=== PATIENT | female | born 2005 | race Caucasian/White ===

== ENCOUNTER 2025-01-02 12:49 | Emergency (ER) | payer OTHER, SELFPAY ==
[2025-01-02] VITALS (12 sets, daily range): BP systolic 95–138; BP diastolic 48–88; PULSE 67–102; RESP 15–19; TEMP 36.7; O2SAT 97–100
--- NOTE | 2025-01-02 13:40 | ECG_ITS ---
Test Date: 2025-01-02 15:46:23 Measurements Intervals [place] Rate: 64 P: 4 CA: 136 QRS: 74 QRSD: 86 T: 47 QT: 375 QTc: 387 Interpretive Statements SINUS RHYTHM MINIMAL Q WAVES- INFERIOR LEADS BASELINE ARTIFACT- I, II, III, AVR, AVL, V1 BORDERLINE ECG No previous ECG available for comparison Electronically Signed On 01-02-2025 16:07:44 CDT by Federico Tom D.O.
--- NOTE | 2025-01-02 14:06 | ED_ITS ---
HPI - General Adult General Chief complaint: Unspecified Stated complaint: episodes of near syncope (no LOC) Time Seen by Provider: 01/02/25 13:37 History of Present Illness HPI narrative: 19-year-old female presents emergency department for evaluation for intermittent headache and visual changes. Patient reports she does have history of POTS. Patient states over the last few weeks she has had intermittent episodes where she has some visual changes including difficulty with depth perception and then has a subsequent headache. Today patient reports that she had a headache and just felt ? ?. Patient does have history of POTS Related Data Allergies Allergy/AdvReac Type Severity Reaction Status Date / Time No Known Allergies Allergy Verified 01/02/25 15:26 Review of Systems 2 Review of Systems: All systems reviewed & are unremarkable except as noted in HPI and below Exam 2 Narrative: APPEARANCE: Well appearing, no pain, no distress, well-nourished. HEAD: normocephalic, atraumatic. EYES: PERRLA/EOMI, conjunctivae clear. NOSE: Normal no drainage EARS:TMS clear with good light reflex. THROAT: Pharynx clear, no exudate. NECK: Supple. No adenopathy, no masses. RESPIRATORY: Airway patent, respirations nonlabored. Clear to auscultation bilaterally, no rales, rhonchi, wheezing. CARDIOVASCULAR: Regular rate and rhythm without murmurs rubs or gallops. ABDOMINAL: Soft, nontender, nondistended, normal bowel sounds MUSCULOSKELETAL: Moves all extremities. Strength/ROM intact, No edema, No calf tenderness. NEURO: Alert. Cranial nerves II through XII intact. Grossly intact SKIN: Warm, dry. Normal Color Course Vital Signs Vital signs: Vital Signs Temperature 98.0 F 01/02/25 12:56 Pulse Rate 79 01/02/25 12:56 Respiratory Rate 15 01/02/25 12:56 Blood Pressure 138/59 L 01/02/25 12:56 Temperature 98.0 F 01/02/25 12:56 Pulse Rate 102 H 01/02/25 16:45 Respiratory Rate 16 01/02/25 16:45 Blood Pressure 119/75 01/02/25 16:45 Pulse Oximetry 98 01/02/25 16:45 Medical Decision Making [facility] Narrative Medical decision making narrative: 19-year-old female presents emergency department for evaluation for complaints of oral, migraine and lightheaded dizziness. Patient reports her symptoms are resolved with IV fluids, IV Compazine, IV Benadryl and IV Toradol. Patient is currently afebrile with no leukocytosis hemoglobin 14.1. Patient has no acute abnormalities on her CMP UA is negative for infection. Since test was negative. On re-evaluation patient states she does feel significantly improved. Differential Diagnosis Differential Diagnosis: Dehydration, migraine, pots, UTI Vital Signs Vital Signs: Vital Signs Temperature 98.0 F 01/02/25 12:56 Pulse Rate 79 01/02/25 12:56 Respiratory Rate 15 01/02/25 12:56 Blood Pressure 138/59 L 01/02/25 12:56 Temperature 98.0 F 01/02/25 12:56 Pulse Rate 102 H 01/02/25 16:45 Respiratory Rate 16 01/02/25 16:45 Blood Pressure 119/75 01/02/25 16:45 Pulse Oximetry 98 01/02/25 16:45 Lab Data Lab results reviewed: Yes I reviewed the patient's lab results. 01/02/25 15:07 01/02/25 15:07 Labs: Lab Results 01/02/25 01/02/25 Range/Units 14:30 15:07 WBC 5.8 (4.5-10.0) K/mm3 RBC 4.76 (4.2-5.4) M/mm3 Hgb 14.1 (12.0-15.0) g/dL Hct 42.7 (37.0-47.0) % MCV 89.7 (80-100) fl MCH 29.6 (26-34) pg MCHC 33.0 (32-36) g/dl RDW 11.7 (11.5-14.5) % Plt Count 229 (150-375) k/mm3 MPV 9.8 (7.4-10.4) fl Immature Gran % (Auto) 0.2 (0-0.5) % Neut % (Auto) 54.8 (45.5-73.1) % Lymph % (Auto) 34.8 (18.3-44.2) % Hutchinson % (Auto) 8.1 (2.6-8.5) % Eos % (Auto) 1.4 (0-4.4) % Baso % (Auto) 0.7 (0.2-1.2) % Lymph # (Auto) 2.01 (0.9-3.2) K/mm3 Hutchinson # (Auto) 0.5 (0.1-0.6) K/mm3 Eos # (Auto) 0.1 (0-0.3) K/mm3 Baso # (Auto) 0.0 (0.0-0.1) K/mm3 Abs Immat Gran (auto) 0.01 (0.00-0.031) K/mm3 Absolute Neuts (auto) 3.2 (1.3-6.7) K/mm3 Absolute Nucleated RBC 0.000 (0.0-0.012) K/mm3 Nucleated RBC % 0.0 (0.0-0.2) % Sodium 138 (137-145) mmol/L Potassium 4.1 (3.4-5.0) mmol/L Chloride 104 (98-107) mmol/L Carbon Dioxide 25 (22-30) mmol/L Anion Gap 9 (4-12) mmol/L BUN 13 (7-17) mg/dL Creatinine 0.72 (0.7-1.0) mg/dL Estim Creat Clear Calc Not Reportable Estimated GFR > 60 (59 - ) Glucose 82 (65-110) mg/dL Calcium 9.5 (8.4-10.2) mg/dL Magnesium 2.0 (1.6-2.3) mg/dL Total Bilirubin 0.4 (0.2-1.3) mg/dL AST 30 (14-36) U/L ALT 18 (6-35) U/L Alkaline Phosphatase 50 (38-126) U/L Total Protein 8.1 (6.3-8.2) g/dL Albumin 4.7 (3.5-5.1) g/dL TSH (Reflex) 0.848 (0.465-4.68) uIU/mL Urine Color Yellow (Yellow) Urine Appearance Clear (Clear) Urine pH 7.0 (5.0-9.0) Ur Specific [place] 1.014 (1.001-1.035) Urine Protein Negative (Negative) mg/dL Urine Glucose (UA) Negative (Negative) mg/dL Urine Ketones Negative (Negative) mg/dL Ur Blood (Man) Negative (Negative) Urine Nitrate Negative (Negative) Urine Bilirubin Negative (Negative) Urine Urobilinogen 0.2 (<2.0) mg/dL Add Ur Microanalysis Reviewed Leukocyte Esterase Rfl 1+ H (Negative) CINTHIA/UL Urine RBC 0-2 (0-2) /hpf Urine WBC 0-5 (0-3) /hpf Ur Squamous Epith Cells None seen (Few) /hpf Urine Bacteria None seen /hpf Urine Casts 0-2 POC Urine HCG, Qual Negative (Negative) ECG Data EKG #1: EKG Interpretation: normal rate, sinus rhythm, no ectopy, non-specific ST changes, normal QRS, normal QT and NL axis Discharge Plan Discharge Clinical Impression: Migraine Patient Disposition: Home Condition: Stable Instructions: Antibiotic Form, Migraine Headache (ED), Dizziness (ED) Additional Instructions: Have close follow-up with your primary care physician. Tylenol and ibuprofen as needed for headache. Drink plenty of fluids. Follow a balanced diet. If you have any worsening symptoms then please call or return to the emergency department Patient Language: Citizen Of [place] Follow-up/Referrals: PHYSICIAN NOT ON STAFF,NONSTAFF [Non-Staff]
[2025-01-02] MEDS: LACTATED RINGERS 1,000 ML 999 ML IV CONT (15:10)
[2025-01-02] MEDS: KETOROLAC 15 MG/ML VIAL (*BKC) IV PUSH (15:11)
[2025-01-02] MEDS: PROCHLORPERAZINE EDISYLATE 10 MG/2 ML VIAL IV PUSH (15:18)
[2025-01-02 15:23] LABS: Hematocrit 42.7 % (37.0-47.0); Hemoglobin 14.1 g/dL (12.0-15.0); Immature Granulocyte Percent A 0.2 % (0-0.5); Lymphocytes Absolute Auto 2.01 K/mm3 (0.9-3.2); Mean Corpuscular HGB Conc 33.0 g/dl (32-36); Mean Corpuscular Hemoglobin 29.6 pg (26-34); Mean Corpuscular Volume 89.7 fl (80-100); Nucleated Red Blood Cells Absolute Auto 0.000 K/mm3 (0.0-0.012); Nucleated Red Blood Cells Perc 0.0 % (0.0-0.2); Platelet Count Result 229 k/mm3 (150-375); Red Blood Count 4.76 M/mm3 (4.2-5.4); White Blood Count 5.8 K/mm3 (4.5-10.0)
[2025-01-02 15:39] LABS: Alanine Aminotransferase 18 U/L (6-35); Albumin Level 4.7 g/dL (3.5-5.1); Alkaline Phosphatase 50 U/L (38-126); Anion Gap 9 mmol/L (4-12); Aspartate Amino Transferase 30 U/L (14-36); Bilirubin,Total 0.4 mg/dL (0.2-1.3); Blood Urea Nitrogen 13 mg/dL (7-17); Calcium 9.5 mg/dL (8.4-10.2); Carbon Dioxide 25 mmol/L (22-30); Chloride 104 mmol/L (98-107); Estimated Glomerular Filt Rate > 60; Glucose 82 mg/dL (65-110); Magnesium 2.0 mg/dL (1.6-2.3); Potassium 4.1 mmol/L (3.4-5.0); Sodium 138 mmol/L (137-145); Total Protein 8.1 g/dL (6.3-8.2)
[2025-01-02 15:47] LABS: BEDSIDEPREGUCG Negative (Negative)
[2025-01-02 15:59] LABS: Add Urine Microscopic? YES; Appearance Urine Clear (Clear); Glucose Urine UA Negative (Negative); Leukocyte Esterase Ur 1+ LEU/UL (Negative); Need Manual Microscopic Reviewed; Nitrate Urine Negative (Negative); Non Pathogenic Casts 0-2; Specific Grav Ur 1.014 (1.001-1.035)
--- OUTSIDE RECORDS SUMMARY | 2025-01-02 16:12 | XMS_ITS | Encounter Summary ---
Author Organization [facility] Address [address] [place] [address] Care Team Providers Care Analytic Manager Name Role Phone KatyDarin Primary Care Provider Li Kendrick DO Unavailable [phone] Encounter Details Date Type Department Care Team (Late st Contact Info) Description 11/01/2024 Results Follow-Up [facility] [place] - Endoscopy Surgery [address] [place], [place] [id number] Li Kendrick DO [address] [address] Social History Tobacco Use Types Packs/Day Years Used Date Smoking Tobacco: Never Smokeless Tobacco: Never Alcohol Use Standard Drinks/Week Comments Never 0 (1 standard drink = 0.6 oz pur e alcohol) AUDIT-C Answer Date Recorded Frequency of Alcohol Consumption Not on file 09/02/2023 Q2: How many drinks containi ng alcohol do you have on a typical day when you are drinking? Patient does not drink Frequency of Binge Drinking Not on file 08/05 PHQ-2 Answer Date Recorded Patient Health Questionnaire-2 Score 1 10/12/2024 Comments No Sex and Gender Information Value Date Recorded Sex Assigned at Female 05/13/2024 5:47 PM PANEL FITTER Legal Sex Female 5:44 AM PANEL FITTER Gender Identity Female 05/13/2024 5:47 PM PANEL FITTER Sexual Orientation Straight 05/13/2024 5: 47 PM PANEL FITTER documented as of this encounter Functional Status * Is person deaf or have serious hearing difficulty? Answer Date of Assessment Author No 10/18/2024 9:03 AM CDChintan Luevano RN * Is person blind or have serious difficulty seeing? Answer Date of Assessment Author No 10/18/2024 9:03 AM CDT Chintan Rausch RN * Does person have serious difficulty walking/climbing stairs? Answer Date of Assessment Author No 10/18/2024 9:03 AM CDChintan Luevano RN * Does person have difficulty dressing/bathing? Answer Date of Assessment Author No 10/18/2024 9:03 AM Chintan Jean RN * Does person have difficulty doing errands alone? Answer Date of Assessment Author No 10/18/2024 9:03 AM Chintan Jean RN documented as of this encounter Mental Status * Does person have difficulty concentrating/remembering/making decisions? Answer Entry Date Author No 10/18/2024 9:03 AM Chintan Jean RN documented in this encounter Progress Notes * Li Kendrick DO - 11/01/2024 10:51 AM CDT The biopsies of the stomach do reveal inflammation called gastritis. There was no H pylori infection. Please keep taking acid medication as prescribed. The duodenal biopsies show inflammation as well- though no signs of celiac disease Biopsies of the colon were normal. There were no findings to explain changes in bowel habits. Therewas no infection or inflammation consistent with colitis. Repeat at age 44yo for screening Let's please arrange an office visit for me or an CRM DYNAMICS DEVELOPER for follow up Ahalogyhart message sent to patient. documented in this encounter Plan of Treatment Not on file documented as of this encounter Visit Diagnoses Not on filedocumented in this encounter Care Teams Analytic Manager Relationship Specialty Start Date End Date Darin Burns DO [address] [address] PCP - General Family Medicine 07/31/22 Li Kendrick DO [address] [phone] Sfdc Developer Gastroenterology 11/17/24 documented as of this encounter
--- OUTSIDE RECORDS SUMMARY | 2025-01-02 16:12 | XMS_ITS | Encounter Summary ---
Author Organization [employer] Address [address] [place] [address] Care Team Providers Care Car Hop Name Role Phone Unavailable Primary Care Provider Unavailabl e Encounter Details Date Type Department Care Team (Late st Contact Info) Description 2004 Outpatient Historical [facility] [address] [place] [address] [place] [address] [place] [address] Social History Tobacco Use Types Packs/Day Years Used Date Smoking Tobacco: Never Assessed Comments Unknown Sex and Gender Information Value Date Recorded Sex Assigned at Not on file Legal Sex Female 2:55 AM MANAGER STRATEGIC DEVELOPMENT Gender Identity Not on file Sexual Orientation Not on file documented as of this encounter Plan of Treatment Not on file documented as of this encounter Visit Diagnoses Not on filedocumented in this encounter
--- OUTSIDE RECORDS SUMMARY | 2025-01-02 16:12 | XMS_ITS | Encounter Summary ---
Author Organization [employer] Address [address] [place] [address] Care Team Providers Care Physician Assistant Name Role Phone Unavailable Primary Care Provider Unavailabl e Encounter Details Date Type Department Care Team (Late st Contact Info) Description 01/16/2005 Outpatient Historical [facility] [address] [place] [address] [place] [address] [place] [address] Social History Tobacco Use Types Packs/Day Years Used Date Smoking Tobacco: Never Assessed Comments Unknown Sex and Gender Information Value Date Recorded Sex Assigned at Not on file Legal Sex Female 2:55 AM PERSONAL CARE AIDE Gender Identity Not on file Sexual Orientation Not on file documented as of this encounter Plan of Treatment Not on file documented as of this encounter Visit Diagnoses Not on filedocumented in this encounter
--- OUTSIDE RECORDS SUMMARY | 2025-01-02 16:12 | XMS_ITS | Clinical Summary ---
Author Organization [facility] Address [address] [place] [address] Care Team Providers Care Director Of Psychiatry Name Role Phone Unavailable Primary Care Provider Unavailabl e Social History Tobacco Use Types Packs/Day Years Used Date Smoking Tobacco: Never Assessed Comments Unknown Sex and Gender Information Value Date Recorded Sex Assigned at Not on file Legal Sex Female 2:33 PM EVP STRATEGY Gender Identity Not on file Sexual Orientation Not on file Plan of Treatment Health Maintenance Due Date Last Done Comments Hepatitis C Virus (HCV) Screening 2004 TdaP Immunization 2004 Human Papillomavirus (HPV) Immunization (1 - 3-dose series) 11/07/2019 Meningococcal B Immunization (1 of 2 - Standard) 2020 Hepatitis B Immunization (1 of 3 - 19+ 3-dose series) 11/07/2023 SARS-COV-2 Immunization ( - season) 2024 Influenza Immunization (#1) 2025 Respiratory Syncytial Virus (RSV) Immunization (Adult) (1 - 1-dose 75+ series) 11/07/2079 Meningococcal Immunization (ACWY) Aged Out No longer eligible based on patient's age to complete this topic Pneumococcal Immunization Combined Aged Out No longer eligible based on patient's age to complete this topic Rotavirus Immunization Aged Out No lo nger eligible based on patient's age to complete this topic
--- OUTSIDE RECORDS SUMMARY | 2025-01-02 16:12 | XMS_ITS | Encounter Summary ---
Author Organization [employer] Address [address] [place] [address] Care Team Providers Care Edge Finisher Name Role Phone Unavailable Primary Care Provider Unavailabl e Encounter Details Date Type Department Care Team (Late st Contact Info) Description 07/08/2005 Outpatient Historical [facility] [address] [place], [place] [id number] [place] [address] [place] [address] Social History Tobacco Use Types Packs/Day Years Used Date Smoking Tobacco: Never Assessed Comments Unknown Sex and Gender Information Value Date Recorded Sex Assigned at Not on file Legal Sex Female 2:55 AM INTELLIGENT SYSTEMS ENGINEER Gender Identity Not on file Sexual Orientation Not on file documented as of this encounter Plan of Treatment Not on file documented as of this encounter Visit Diagnoses Not on filedocumented in this encounter
--- OUTSIDE RECORDS SUMMARY | 2025-01-02 16:12 | XMS_ITS | Encounter Summary ---
Author Organization [email or web address] Address [address] [place] [address] Care Team Providers Care Virtualization Consultant Name Role Phone Unavailable Primary Care Provider Unavailabl e Encounter Details Date Type Department Care Team (Late st Contact Info) Description 05/03/2005 Outpatient Historical [facility] [address] [place] [address] [place] [address] [place] [address] Social History Tobacco Use Types Packs/Day Years Used Date Smoking Tobacco: Never Assessed Comments Unknown Sex and Gender Information Value Date Recorded Sex Assigned at Not on file Legal Sex Female 2:55 AM MACHINE SIZER Gender Identity Not on file Sexual Orientation Not on file documented as of this encounter Plan of Treatment Not on file documented as of this encounter Visit Diagnoses Not on filedocumented in this encounter
--- OUTSIDE RECORDS SUMMARY | 2025-01-02 16:12 | XMS_ITS | Encounter Summary ---
Author Organization [employer] Address [address] [place] [address] Care Team Providers Care Machine Castings Plasterer Name Role Phone Unavailable Primary Care Provider Unavailabl e Encounter Details Date Type Department Care Team (Late st Contact Info) Description 2004 Outpatient Historical [facility] [address] [place] [address] [place] [address] [place] [address] Social History Tobacco Use Types Packs/Day Years Used Date Smoking Tobacco: Never Assessed Comments Unknown Sex and Gender Information Value Date Recorded Sex Assigned at Not on file Legal Sex Female 2:55 AM SONG LYRICIST Gender Identity Not on file Sexual Orientation Not on file documented as of this encounter Plan of Treatment Not on file documented as of this encounter Visit Diagnoses Not on filedocumented in this encounter
--- OUTSIDE RECORDS SUMMARY | 2025-01-02 16:12 | XMS_ITS | Encounter Summary ---
Author Organization [employer] Address [address] [place] [address] Care Team Providers Care Instrument Checker Name Role Phone Unavailable Primary Care Provider Unavailabl e Encounter Details Date Type Department Care Team (Late st Contact Info) Description 01/16/2005 Outpatient Historical [facility] [address] [place] [address] [place] [address] [place] [address] Social History Tobacco Use Types Packs/Day Years Used Date Smoking Tobacco: Never Assessed Comments Unknown Sex and Gender Information Value Date Recorded Sex Assigned at Not on file Legal Sex Female 2:55 AM ELEMENTARY SCHOOL COUNSELOR Gender Identity Not on file Sexual Orientation Not on file documented as of this encounter Plan of Treatment Not on file documented as of this encounter Visit Diagnoses Not on filedocumented in this encounter
--- OUTSIDE RECORDS SUMMARY | 2025-01-02 16:12 | XMS_ITS | Encounter Summary ---
Author Organization [employer] Address [address] [place] [address] Care Team Providers Care Marketing Information Coordinator Name Role Phone Unavailable Primary Care Provider Unavailabl e Encounter Details Date Type Department Care Team (Late st Contact Info) Description 2004 Outpatient Historical [facility] [address] [place] [address] [place] [address] [place] [address] Social History Tobacco Use Types Packs/Day Years Used Date Smoking Tobacco: Never Assessed Comments Unknown Sex and Gender Information Value Date Recorded Sex Assigned at Not on file Legal Sex Female 2:55 AM FELLER HAND Gender Identity Not on file Sexual Orientation Not on file documented as of this encounter Plan of Treatment Not on file documented as of this encounter Visit Diagnoses Not on filedocumented in this encounter
--- OUTSIDE RECORDS SUMMARY | 2025-01-02 16:12 | XMS_ITS | Clinical Summary ---
Author Organization [facility] Address [facility] [place] [address] Care Team Providers Care Authorization Rep Name Role Phone Unavailable Primary Care Provider Unavailabl e Social History Tobacco Use Types Packs/Day Years Used Date Smoking Tobacco: Never Assessed Comments Unknown Sex and Gender Information Value Date Recorded Sex Assigned at Not on file Legal Sex Female 7:35 PM CDT Gender Identity Not on file Sexual Orientation Not on file Plan of Treatment Health Maintenance Due Date Last Done Comments Annual Physical 11/07/2007 HPV Vaccines (1 - 3-dose series) 11/07/2019 Meningococcal B Vaccine (1 o f 2 - Standard) 2020 Hepatitis C 2022 DTaP, Tdap and Td Vaccines ( 1 - Tdap) 11/07/2023 Hepatitis B Vaccines (1 of 3 - 19+ 3-dose series) 11/07/2023 COVID-19 Vaccine (1 - 2023-2 5 season) 2024 Meningococcal Vaccine Aged Out No rachel pooja eligible based on patient's age to complete this topic Pneumococcal Vaccine: Pediat rics (0 to 5 Years) and At-Risk Patients (6 to 49 Years) Aged Out No longer eligible b ased on patient's age to complete this topic RSV Immunizations Under 20 Months Aged Out No longer eligible based on patient's age to complete this topic Insurance [facility] [address]
--- OUTSIDE RECORDS SUMMARY | 2025-01-02 16:12 | XMS_ITS | Encounter Summary ---
Author Organization [employer] Address [address] [place] [address] Care Team Providers Care Textile Colorist Formulator Name Role Phone Unavailable Primary Care Provider Unavailabl e Encounter Details Date Type Department Care Team (Late st Contact Info) Description 01/09/2005 Outpatient Historical [facility] [address] [place] [address] [place] [address] [place] [address] Social History Tobacco Use Types Packs/Day Years Used Date Smoking Tobacco: Never Assessed Comments Unknown Sex and Gender Information Value Date Recorded Sex Assigned at Not on file Legal Sex Female 2:55 AM SALES SERVICE COORDINATOR Gender Identity Not on file Sexual Orientation Not on file documented as of this encounter Plan of Treatment Not on file documented as of this encounter Visit Diagnoses Not on filedocumented in this encounter
--- OUTSIDE RECORDS SUMMARY | 2025-01-02 16:12 | XMS_ITS | Clinical Summary ---
Author Organization [facility] [employer] Address [address] [place] [address] Care Team Providers Care Sand Caster Name Role Phone Darin Burns DO Primary Care Provider [phone] Mireille Li Gomez DO Unavailable [phone] Source Comments [facility],non-owned Affiliates and Associated Physician Practices is amultiple site organization consisting of ambulatory clinics and hospital sitesin [place], [place], [place] and [place]. This disclosure is being madepursuant to the Care Everywhere program and may not contain all information available regarding this patient. Last updated 18.[facility] Allergies No known active allergies Medications * This document contains information received from the source organization and may not represent a complete record from that organization. * Be aware that medications may not be up to date on this document. Alwaysverify current medications with the patient. 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 Obsessive compulsive disorder 02/23/2024 Overview (10/12/2024): Diagnosed at [facility] Generalized anxiety disorder with panic attacks 07/31/2022 Overview (07/31/2022): Resume Zoloft at previous dosing; Follow up in 1 month to reevaluate; Counseling recommended; [facility] for acute needs Acne vulgaris 07/31/2022 Overview (07/31/2022): Has already tried and failed oral doxycycline, topical tretinoin and clindamycin OCP's and Accutane are being discussed Trial of DIfferen Dysmenorrhea 07/31/2022 Overview (07/31/2022): Can discuss OCPs after stable on zoloft Encounters Date Type Department Care Team Description 11/24/2024 10:00 AM CDT Office Visit [facility] - GI [address], [address] [place] [address] Susy Haskins, ORDER PACKER OR PACKAGER-EDGER SAW OPERATOR Altered bowel habits (Primary Dx); Constipation, unspecified constipation type; GERD without esophagitis 11/01/2024 Results Follow-Up [facility] - Endoscopy Surgery [address] [address] Li Kendrick DO 10/18/2024 8:33 AM CDT Anesthesia Event [facility] - Endoscopy Surgery [address] [address] Sugar Gan MD Carlson, Danielle L, ORDER PACKER OR PACKAGER-BELT KNIFE FEEDER 10/18/2024 8:30 AM CDT - 10/18/2024 9:30 AM CDT Surgery [facility] - Endoscopy Surgery [address] [address] Li Kendrick, COLONOSCOPY DIAGNOSTIC 10/18/2024 6:38 AM CDT - 10/18/2024 10:22 AM CDT Hospital Encounter [facility] - Endoscopy Surgery [address] [address] Li Kendrick DO Surgery General Discharge Disposition: Home or Self Care 10/18/2024 Travel 10/13/2024 Telephone [facility] - GI [address], [address] [place] [address] Li Kendrick DO Surgery Scheduling (COLON DIAG-RECTAL BLEEDING-CONSTIPATIO [id number] PAIN EGD ABDOMINAL [id number] BLEEDING) 10/12/2024 2:00 PM CDT Office Visit [facility] - Family Medicine [address] [place] [address], [address] [place] [id number] Elizabeth Saeed, ORDER PACKER OR PACKAGER-EDGER SAW OPERATOR Generalized abdominal pain (Primary Dx); Change in bowel habits; Bloody stool from Last 3 Months Immunizations Immunization Administration Dates Next Due DTAP/IPV 07/05/2009 DTaP VACCINE IM (6wk-6yrs) 11/13/2006,,02/25/2005,01/16 FLU VACCINE QUAD IIV4 SPLIT 0.25 ML IM 7 HEP A PED/ADULT VACCINE 07/05/2009,02/18/2008 HEP B VACCINE 05/03/2005,02/25/2005,01/16/2005 HEP B VACCINE, PED/ADOL 12/07/2013 HIB VACCINE 02/13/2006, 6,02/25/2005,01/16 Human Papilloma Virus Nineva lent Vaccine 09/08/2017,02/28/2017 INFLUENZA VACCINE 02/29/2012, 1,02/24/2010,02/18,02/18/2008,05/03/2005 MENINGOCOCCAL ACWY MENVEO 12/13/2021,12/05/2015 MMR VACCINE 01/03/2010,11/07/2005 PNEUMOCOCCAL PPV VACCINE 02/13/2006,04/06,02/25/2005,11/15 POLIO IPV 05/03/2005,02/25/2005,01/16/2005 TDAP (7yrs+) 12/05/2015 VARICELLA 01/03/2010,11/13/2006 Family History Medical History Relation Name Comments Hypertension Father Anxiety Disorder Mother Diabetes - Type 1 Mother Hypertension Mother Relation Name Status Comments Father Alive Mother Alive Social History Tobacco Use Types Packs/Day Years Used Date Smoking Tobacco: Never Smokeless Tobacco: Never Tobacco Cessation:Counseling Given: Not Answered Alcohol Use Standard Drinks/Week Comments Never 0 [...] Sex Assigned at Female 05/13/2024 5:47 PM HORTICULTURE/FLORICULTURE TEACHER Legal Sex Female 5:44 AM HORTICULTURE/FLORICULTURE TEACHER Gender Identity Female 05/13/2024 5:47 PM HORTICULTURE/FLORICULTURE TEACHER Sexual Orientation Straight 05/13/2024 5: 47 PM HORTICULTURE/FLORICULTURE TEACHER Last Filed Vital Signs Vital Sign Reading Time Taken Comments Blood Pressure 119/78 11/24/2024 9:59 AM CDT Pulse 89 11/24/2024 9:59 AM CDT Temperature 36.4 C (97.5 F) 10/18/2024 9:05 AM CDT Respiratory Rate 11 10/18/2024 10:08 AM CDT Oxygen Saturation 100% 10/18/2024 10:08 AM CDT Inhaled Oxygen Concentration - - Weight 70.6 kg (155 lb 9.6 oz) 11/24/2024 9:59 A M CDT Height 162.6 cm (5' 4) 11/24/2024 9:59 AM CDT Body Mass Index 26.71 11/24/2024 9:59 AM CDT Plan of Treatment Health Maintenance Due Date Last Done Comments HIV SCREENING 11/07/2019 CHLAMYDIA/GONORRHEA SCREENING 2020 MENINGOCOCCAL (Group B) VACCINE SHARED DECISION-MAKING (1 of 2 - Standard) 2020 HEPATITIS C SCREENING 11/02/2022 COVID-19 VACCINE (3 - season) 2024 12/23/2020, 12/01/2020 INFLUENZA VACCINE (#1) 2025 7, 02/29/2012, 02/16/2011, Additional history exists DTAP/TDAP/TD VACCINES (7 - Td or Tdap) 12/04/2025 12/05/2015, 07/05/2009, 11/13/2006, Additional history exists ZOSTER VACCINE (1 of 2) 2054 HIB VACCINE Completed 02/13/2006, 10/2005, 02/25/2005, Additional history exists PNEUMOCOCCAL VACCINE Aged Out 02/13/2006, 05/03/2005, 02/25/2005, Additional history exists No longer eligible based on patient's age to complete this topic HEPATITIS B VACCINE Completed 12/07/2013, 05/03/2005, 02/25/2005, Additional history exists HPV VACCINE Completed 09/08/2017, 02/28/2017 MENINGOCOCCAL GROUPS A/C/Y/W VACCINE Completed 12/13/2021, 12/05/2015 DEPRESSION SCREENING Completed 06/01/2024, 05/23/2023, 07/31/2022 Procedures Procedure Name Priority Date/Time Associated Diagnosis Comments CARDIAC RHYTHM STRIP ORDER 10/19/2024 5:09 PM CDT PATHOLOGY TISSUE EXAM (STL) Routine 10/18/2024 8:40 AM CDT Abdominal pain, unspecified abdominal location Nausea Change in bowel habits Blood in stool ME COLONOSCOPY,BIOPSY 10/18/2024 8:33 AM CDT Rectal bleeding Constipation, unspecified constipation type Diarrhea, unspecified type Abdominal pain, unspecified abdominal location Melena Gastrointestinal hemorrhage, unspecified gastrointestinal hemorrhage type ME EGD FLEX TRANSORAL W BX SNGL OR MULT 10/18/2024 8:33 AM CDT Rectal bleeding Constipation, unspecified constipation type Diarrhea, unspecified type Abdominal pain, unspecified abdominal location Melena Gastrointestinal hemorrhage, unspecified gastrointestinal hemorrhage type ME ED EGD FLEX TRANSORAL DX 10/18/2024 8:33 AM CDT Rectal bleeding Constipation, unspecified constipation type Diarrhea, unspecified type Abdominal pain, unspecified abdominal location Melena Gastrointestinal hemorrhage, unspecified gastrointestinal hemorrhage type ME COLONOSCOPY, DIAGNOSTIC 10/18/2024 8:33 AM CDT Rectal bleeding Constipation, unspecified constipation type Diarrhea, unspecified type Abdominal pain, unspecified abdominal location Melena Gastrointestinal hemorrhage, unspecified gastrointestinal hemorrhage type EGD Routine 10/18/2024 8:32 AM CDT ENDOSCOPY, COLON, DIAGNOSTIC Routine 10/18/2024 8:28 AM CDT HCG URINE QUALITATIVE - POCT (IP) INTERFACED Routine 10/18/2024 8:14 AM CDT HCG URINE QUAL POCT NOTIFICATION Routine 10/18/2024 7:54 AM CDT Preprocedural examination from Last 3 Months Results * CARDIAC RHYTHM STRIP ORDER (10/19/2024 5:09 PM CDT) Narrative 10/19/2024 5:09 PM CDT Ordered by an unspecified provider. us Scanned Document CARDIAC SERVICES ORDERABLES Fin al Result * PATHOLOGY TISSUE EXAM (STL) (10/18/2024 8:40 AM CDT) Case Report Surgical Pathology Report Case: [id number] Authorizing Provider: Li Kendrick, Collected: 10/18/2024 08:40 AM DO Ordering Location: [facility] Received: 10/18/2024 10:08 AM Hospital - Endoscopy Surgery Pathologist: Lore Jane MD Specimens: A) - Gastric Biopsy B) - Duodenal Biopsy C) - Colon Biopsy, random 10/21/2024 9:12 AM CDT [facility] Final Diagnosis Stomach, endoscopic biopsy: - Chronic gastritis - H. pylori immunostain negative Small intestine, duodenum, endoscopic biopsy: - Mildly increased lamina propria chronic inflammation - See description Large intestine, random colon, endoscopic biopsy: - No histopathologic abnormality KL 10/21/2024 9:12 AM [facility] at 0912 CDT Gross Description Received in formalin, labeled with the patient's name, Janeen Frankel, and gastric biopsy are 4 casas soft tissue fragments, ranging from 0.1-0.3 cm in greatest dimension. Entirely submitted in cassette A1. Received in formalin, labeled with patient's name, Janeen Frankel, and duodenal biopsy are 4 casas soft tissue fragments, ranging from 0.1-0.3 cm in greatest dimension. Entirely submitted in cassette B1. Received in formalin, labeled with the patient's name, Janeen Frankel, and colon biopsy, random are multiple whitish casas soft tissue fragments, ranging from less than 0.1-0.3 cm, aggregating to 0.7 x 0.7 x 0.1 cm. Entirely submitted in cassette C1. SD 10/21/2024 9:12 AM [facility] Microscopic Description Histologic sections of the stomach biopsy show fragments of gastric antral and body-type mucosa with [id number] chronic inflammatory infiltrates. An immunohistochemical stain for Helicobacter pylori is negative with appropriately reactive controls. There is no evidence of dysplasia or malignancy. Histologic sections of the duodenal biopsy show fragments of small intestinal mucosa with normal villous to crypt ratio. Lamina propria chronic inflammation is mildly increased, but intraepithelial lymphocytes are overall sparse with focal areas of up to 20 lymphocytes/100 enterocytes. These findings are mild and non-specific. Please correlate with clinical and endoscopic findings. There is no evidence of dysplasia or malignancy. Histologic sections of the random colon biopsy show fragments of large intestinal mucosa without specific histopathologic abnormality. There is no significant chronic or active inflammation. There is no evidence of lymphocytic or collagenous colitis. There is no evidence of dysplasia or malignancy. 10/21/2024 9:12 AM [facility] Disclaimer All histochemical and/or immunohistochemical results are interpreted with controls that demonstrate appropriate staining reactions before reporting results. Note on use of immunocytochemistry reagents: This test was developed and its performance characteristic determined by [facility], Department of Laboratory Medicine. It has not been cleared or approved by the U.S. Food and Drug Administration (FDA). The FDA has determined that such clearance or approval is not necessary. The test is used for clinical purpose. It should not be regarded as investigational or for research. This laboratory is certified to perform high complexity testing. The performance characteristics of the IHC/POOL assays have been validated on formalin-fixed paraffin embedded tissues only. The assays have not been validated on decalcified tissues. Results should be interpreted with caution. 10/21/2024 9:12 AM CDT [facility] Embedded Images 10/21/2024 9:12 AM CDT [facility] Pathology/Cytology GASTRIC BIOPSY SPECIMEN / Unknown 10/18/2024 8:40 AM CDT 10/18/2024 10:08 AM CDT Comment:Pre-op diagnosis: Rectal bleeding [K62.5] Constipation, unspecified constipation type [K59.00] Diarrhea, unspecified type [R19.7] Abdominal pain, unspecified abdominal location [R10.9] Melena [K92.1] Gastrointestinal hemorrhage, unspecified gastrointestinal hemorrhage type [K92.2] Miscellaneous samples (specimen) DUODENAL BIOPSY SPECIMEN / Unknown 10/18/2024 8:41 AM CDT 10/18/2024 10:08 AM CDT Comment:Pre-op diagnosis: Rectal bleeding [K62.5] Constipation, unspecified constipation type [K59.00] Diarrhea, unspecified type [R19.7] Abdominal pain, unspecified abdominal location [R10.9] Melena [K92.1] Gastrointestinal hemorrhage, unspecified gastrointestinal hemorrhage type [K92.2] Miscellaneous samples (specimen) COLONIC BIOPSY SPECIMEN / Unknown 10/18/2024 8:51 AM CDT 10/18/2024 10:08 AM CDT Comment:Pre-op diagnosis: Rectal bleeding [K62.5] Constipation, unspecified constipation type [K59.00] Diarrhea, unspecified type [R19.7] Abdominal pain, unspecified abdominal location [R10.9] Melena [K92.1] Gastrointestinal hemorrhage, unspecified gastrointestinal hemorrhage type [K92.2] Li Kendrick DO LAB - PATHOLOGY/CYTOL OGY ORDERABLES Final Result [facility] [address] [place] [address] * EGD (10/18/2024 8:32 AM CDT) Report Endoscopy POC _ Patient Name: Janeen Frankel Procedure Date: 10/18/2024 8:32 AM Date of : 2005 Admit Type: Outpatient Age: 18 Room: ROOM 2 Gender: Female Attending MD: Li Kendrick , , [id number] _ Procedure: Upper GI endoscopy Indications: Epigastric abdominal pain, Nausea Providers: Li Kendrick, Meena Kaminski RN, Sylvia Hammonds (Anesthesia Staff) Medicines: Propofol per Anesthesia Complications: No immediate complications. _ Estimated Blood Loss: Estimated blood loss: none. Procedure: Pre-Anesthesia Assessment: - Prior to the procedure, a History and Physical was performed, and patient medications and allergies were reviewed. The patient's tolerance of previous anesthesia was also reviewed. The risks and benefits of the procedure and the sedation options and risks were discussed with the patient. All questions were answered, and informed consent was obtained. Prior Anticoagulants: The patient has taken no anticoagulant or antiplatelet agents. ASA Grade Assessment: II - A patient with mild systemic disease. After reviewing the risks and benefits, the patient was deemed in satisfactory condition to undergo the procedure. After obtaining informed consent, the endoscope was passed under direct vision. Throughout the procedure, the patient's blood pressure, pulse, and oxygen saturations were monitored continuously. The Endoscope was introduced through the mouth, and advanced to the second part of duodenum. The upper GI endoscopy was accomplished without difficulty. The patient tolerated the procedure well. Findings: The examined esophagus was normal. The Z-line was regular and was found 39 cm from the incisors. The entire examined stomach was normal. Biopsies were taken with a cold forceps for Helicobacter pylori testing. The examined duodenum was normal. Biopsies for histology were taken with a cold forceps for evaluation of celiac disease. The cardia and gastric fundus were normal on retroflexion. _ Impression: - Normal esophagus. - Z-line regular, 39 cm from the incisors. - Normal stomach. Biopsied. - Normal examined duodenum. Biopsied. Recommendation: - Discharge patient to home. - Patient has a contact number available for emergencies. The signs and symptoms of potential delayed complications were discussed with the patient. Return to normal activities tomorrow. Written discharge instructions were provided to the patient. - Resume previous diet. - Continue present medications. - Await pathology results. Procedure Code(s): --- Professional --- 70494, Esophagogastroduo denoscopy, flexible, transoral; with biopsy, single or multiple --- Technical --- 74329, Esophagogastroduo denoscopy, flexible, transoral; with biopsy, single or multiple Diagnosis Code(s): --- Professional --- R10.13, Epigastric pain R11.0, Nausea --- Technical --- R10.13, Epigastric pain R11.0, Nausea CPT copyright 2020 [employer]. All rights reserved. The codes documented in this report are preliminary and upon icd 9 coder review may be revised to meet current compliance requirements. Li Kendrick Li Kendrick, 10/18/2024 8:46:39 AM This report has been signed electronically. Number of Addenda: 0 Note Initiated On: 10/18/2024 8:32 AM [facility] 10/18/2024 8:32 AM CDT us Li Kendrick DO GI PROCEDURE ORDERABL ES Edited Result - Final [facility] * Endoscopy, Colon, Diagnostic (10/18/2024 8:28 AM CDT) Report Endoscopy POC _ Patient Name: Janeen Frankel Procedure Date: 10/18/2024 8:28 AM Date of : 2005 Admit Type: Outpatient Age: 18 Room: ROOM 2 Gender: Female Attending MD: Li Kendrick , , [id number] _ Procedure: Colonoscopy Indications: Hematochezia, Change in bowel habits Providers: Li Kendrick, Meena Kaminski, DAYO, Sylvia Hammonds (Anesthesia Staff) Medicines: Propofol per Anesthesia Complications: No immediate complications. _ Estimated Blood Loss: Estimated blood loss: none. Procedure: Pre-Anesthesia Assessment: - Prior to the procedure, a History and Physical was performed, and patient medications and allergies were reviewed. The patient's tolerance of previous anesthesia was also reviewed. The risks and benefits of the procedure and the sedation options and risks were discussed with the patient. All questions were answered, and informed consent was obtained. Prior Anticoagulants: The patient has taken no anticoagulant or antiplatelet agents. ASA Grade Assessment: II - A patient with mild systemic disease. After reviewing the risks and benefits, the patient was deemed in satisfactory condition to undergo the procedure. After I obtained informed consent, the scope was passed under direct vision. Throughout the procedure, the patient's blood pressure, pulse, and oxygen saturations were monitored continuously. The Endoscope was introduced through the anus and advanced to the terminal ileum. The colonoscopy was performed without difficulty. The patient tolerated the procedure well. The quality of the bowel preparation was evaluated using the BBPS (Thatcher Bowel Preparation Scale) with scores of: Right Colon = 2 (minor amount of residual staining, small fragments of stool and/or opaque liquid, but mucosa seen well), Transverse Colon = 3 (entire mucosa seen well with no residual staining, small fragments of stool or opaque liquid) and Left Colon = 3 (entire mucosa seen well with no residual staining, small fragments of stool or opaque liquid). The total BBPS score equals 8. The quality of the bowel preparation was good. Findings: The perianal and digital rectal examinations were normal. The terminal ileum appeared normal. The colon (entire examined portion) appeared normal. Biopsies for histology were taken with a cold forceps from the ascending colon, transverse colon and descending colon for evaluation of microscopic colitis. Internal hemorrhoids were found during retroflexion. The hemorrhoids were mild. _ Impression: - The examined portion of the ileum was normal. - The entire examined colon is normal. Biopsied. - Internal hemorrhoids. Recommendation: - Discharge patient to home. - Patient has a contact number available for emergencies. The signs and symptoms of potential delayed complications were discussed with the patient. Return to normal activities tomorrow. Written discharge instructions were provided to the patient. - Resume previous diet. - Continue present medications. - Await pathology results. - Repeat colonoscopy at age 44 for screening purposes. Procedure Code(s): --- Professional --- 85072, Colonoscopy, flexible; with biopsy, single or multiple --- Technical --- 81973, Colonoscopy, flexible; with biopsy, single or multiple Diagnosis Code(s): --- Professional --- K64.8, Other hemorrhoids K92.1, Melena (includes Hematochezia) R19.4, Change in bowel habit --- Technical --- K64.8, Other hemorrhoids K92.1, Melena (includes Hematochezia) R19.4, Change in bowel habit CPT copyright 2020 [employer]. All rights reserved. The codes documented in this report are preliminary and upon icd 9 coder review may be revised to meet current compliance requirements. Li Kendrick Li Kendrick, 10/18/2024 8:59:59 AM This report has been signed electronically. Number of Addenda: 0 Note Initiated On: 10/18/2024 8:28 AM [facility] 10/18/2024 8:28 AM CDT us Li Kendrick DO GI PROCEDURE ORDERABL ES Edited Result - Final [facility] * HCG URINE QUALITATIVE - POCT (IP) INTERFACED (10/18/2024 8:14 AM CDT) HCG Qual Urine Negative Negative 10/18/2024 8:20 AM CDT [facility] Urine URINE / Unknown 10/18/2024 8 :14 AM CDT 10/18/2024 8:20 AM CDT Li Kendrick DO LAB - POINT OF CARE O RDERABLES Final Result [facility] [address] [address] * HCG URINE QUAL POCT NOTIFICATION (10/18/2024 7:54 AM CDT) Comment Notification Label Only - See Separate Report 10/18/2024 9:01 AM CDT [facility] Urine URINE / Unknown 10/18/2024 7 :54 AM CDT 10/18/2024 7:55 AM CDT Li Kendrick DO LAB - URINALYSIS ORDE RABLES Final Result [facility] [address] [id number] from Last 3 Months Insurance [facility] [employer] Care Teams Sand Caster Relationship Specialty Start Date End Date Darin Burns DO [address] [address] PCP - General Family Medicine 07/31/22 [place] [address] [place] [address] [place] [id number] [place] Supervisor Gastroenterology 11/17/24
--- OUTSIDE RECORDS SUMMARY | 2025-01-02 16:12 | XMS_ITS | Encounter Summary ---
Author Organization [employer] Address [address] [place] [address] Care Team Providers Care Admissions Supervisor Name Role Phone Unavailable Primary Care Provider Unavailabl e Encounter Details Date Type Department Care Team (Late st Contact Info) Description 2005 Outpatient Historical [facility] [address] [place] [address] [place] [address] [address] Social History Tobacco Use Types Packs/Day Years Used Date Smoking Tobacco: Never Assessed Comments Unknown Sex and Gender Information Value Date Recorded Sex Assigned at Not on file Legal Sex Female 2:55 AM ACTIVITY DIRECTOR Gender Identity Not on file Sexual Orientation Not on file documented as of this encounter Plan of Treatment Not on file documented as of this encounter Visit Diagnoses Not on filedocumented in this encounter
--- OUTSIDE RECORDS SUMMARY | 2025-01-02 16:12 | XMS_ITS | Encounter Summary ---
Author Organization [employer] Address [address] [place] [address] Care Team Providers Care Supervisor Pipe Joints Name Role Phone Unavailable Primary Care Provider Unavailabl e Encounter Details Date Type Department Care Team (Late st Contact Info) Description 02/25/2005 Outpatient Historical [facility] [id number] 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
--- OUTSIDE RECORDS SUMMARY | 2025-01-02 16:12 | XMS_ITS | Encounter Summary ---
Author Organization [employer] Address [address] [place] [address] Care Team Providers Care Plumbing Assembler Name Role Phone Unavailable Primary Care Provider Unavailabl e Encounter Details Date Type Department Care Team (Late st Contact Info) Description 02/25/2005 Outpatient Historical [facility] [address] 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
--- OUTSIDE RECORDS SUMMARY | 2025-01-02 16:12 | XMS_ITS | Encounter Summary ---
Author Organization [employer] Address [address] [place] [address] Care Team Providers Care Atlassian Administrator Name Role Phone Unavailable Primary Care Provider Unavailabl e Encounter Details Date Type Department Care Team (Late st Contact Info) Description 2004 Outpatient Historical [facility] [address] 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
--- OUTSIDE RECORDS SUMMARY | 2025-01-02 16:12 | XMS_ITS | Encounter Summary ---
Author Organization [facility] Address [address] [place] [address] Care Team Providers Care Clerk Travel Reservations Name Role Phone Unavailable Primary Care Provider Unavailabl e Encounter Details Date Type Department Care Team (Late st Contact Info) Description 05/03/2005 Outpatient Historical [facility] [address] 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
--- OUTSIDE RECORDS SUMMARY | 2025-01-02 16:12 | XMS_ITS | Encounter Summary ---
Author Organization [employer] Address [address] [place] [address] Care Team Providers Care Fine Hairer Name Role Phone Unavailable Primary Care Provider Unavailabl e Encounter Details Date Type Department Care Team (Late st Contact Info) Description 05/27/2005 Outpatient Historical [facility] [address] 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
--- OUTSIDE RECORDS SUMMARY | 2025-01-02 16:12 | XMS_ITS | Clinical Summary ---
Author Organization [facility] Address [address] [place] [address] Phone Care Team Providers Care Truck Leasing Manager Name Role Phone Unavailable Primary Care Provider Unavailabl e Allergies No known active allergies Medications Adapalene 0.1 % Cream APPLY TOPICALLY TO THE AFFECTED AREA AT BEDTIME 3 Active etonogestreL (Nexplanon) 68 mg Implant Inject by subcutaneous injection. Active FLUoxetine (PROzac) 20 mg capsule Take 20 mg by mouth daily. Active Active Problems No known active problems Encounters Date Type Department Care Team Description 11/17/2024 External Device Data [facility] ABSTRACTION Provider, Abstract 11/17/2024 External Device Data [facility] ABSTRACTION Provider, Abstract 10/19/2024 External Device Data [facility] ABSTRACTION Provider, Abstract from Last 3 Months Social History Tobacco Use Types Packs/Day Years Used Date Smoking Tobacco: Never Tobacco Cessation:Counseling Given: Not Answered Alcohol Use Standard Drinks/Week Comments Never 0 (1 standard drink = 0.6 oz pur e alcohol) Adolescent Education Answer Date Record ed Getting School Help Needed Not on file 11/21 Comments No Sex and Gender Information Value Date Recorded Sex Assigned at Not on file 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 Gender Identity Not on file Sexual Orientation Not on file Last Filed Vital Signs Vital Sign Reading Time Taken Comments Blood Pressure 102/70 09/04/2023 3:49 PM CDT Pulse - - Temperature - - Respiratory Rate - - Oxygen Saturation - - Inhaled Oxygen Concentration - - Weight 56.3 kg (124 lb 3.2 oz) 09/04/2023 3:49 P M CDT Height 162.6 cm (5' 4) 09/04/2023 3:49 PM CDT Body Mass Index 21.32 09/04/2023 3:49 PM CDT Plan of Treatment Health Maintenance Due Date Last Done Comments CHLAMYDIA SCREENING (ANNUAL) 11-24 YEARS 11/07/2015 INFLUENZA VACCINE (#1) 2024 02/28/2017 DTAP/TDAP/TD VACCINES (7 - T d or Tdap) 12/04/2025 12/05/2015, 07/05/2009, 11/13/2006, Additional history exists HEPATITIS B VACCINES Completed 12/07/2013, 05/03/2005, 02/25/2005, Additional history exists HPV VACCINES Completed 09/08/2017, 02/28/2017 [facility] [id number]
[2025-01-02 16:17] LABS: Thyroid Stimulating Hormone Reflex 0.848 uIU/mL (0.465-4.68)
== END 2025-01-02 16:50 | disposition home or self-care (01) ==
PROVIDERS: Emergency Provider Emergency Medicine
DX: G43.909 Migraine, unspecified, not intractable, without status migrainosus (principal); R94.31 Abnormal electrocardiogram [ECG] [EKG]
CPT/HCPCS: 36415; 80053; 81001; 81025; 83735; 84443; 85025; 87086; 93005; 96361; 96374; 96375; 99284; J0780; J1200; J1885; J7120